=== PATIENT | female | born 1950 | race Caucasian/White ===

== ENCOUNTER 2021-09-04 18:38 | Emergency (ER) | payer MEDICARE, OTHER ==
[~2021-09-04] VITALS: Ht 152.4 cm; Wt 190.0 kg
[~2021-09-04 18:38] MED LIST: FURO80TA87 PO; GABA-534 PO; GLYB2.5T4 PO; HYDR-4353 PO; IBUP-1984 PO; METF500T PO; POTA-207 PO
[2021-09-04 19:04] VITALS: BP 114/59
[2021-09-04 19:36] LABS: BASOPHILS % (AUTO) 0.3 % (0-1); EOSINOPHILS # (AUTO) 0.1 X10'3 (0-0.9); EOSINOPHILS % (AUTO) 2.1 % (0-6); HEMATOCRIT 40.4 % (35.0-45.0); HEMOGLOBIN 13.5 g/dl (12.0-16.0); LYMPHOCYTES # (AUTO) 1.5 X10'3 (1.1-4.8); LYMPHOCYTES % (AUTO) 28.5 % (21-51); MEAN CORPUSCULAR HEMOGLOBIN 26.6 PG (27.0-31.0); MEAN CORPUSCULAR HGB CONC 33.3 g/dL (33.0-36.5); MEAN PLATELET VOLUME 9.3 FL (7.4-10.4); MONOCYTES # (AUTO) 0.3 X10'3 (0-0.9); NEUTROPHILS # (AUTO) 3.4 X10'3 (1.8-7.7); NEUTROPHILS % (AUTO) 63.1 % (42-75); PLATELET COUNT 187 X10'3 (140-440); RED BLOOD COUNT 5.05 X10'6 (4.20-5.60); RED CELL DISTRIBUTION WIDTH 13.1 % (11.5-14.5); WHITE BLOOD COUNT 5.4 X10'3 (4.5-11.0)
[2021-09-04 19:49] LABS: ALANINE AMINOTRANSFERASE 23 U/L (12-78); ALBUMIN 3.1 G/DL (3.4-5.0); ALBUMIN/GLOBULIN RATIO 0.8 (1.1-1.5); ALKALINE PHOSPHATASE 77 IU/L (46-116); ANION GAP 9 (8-16); ASPARTATE AMINO TRANSFERASE 23 U/L (10-37); BILIRUBIN,TOTAL 0.5 MG/DL (0.1-1.0); BLOOD UREA NITROGEN 9 MG/DL (7-18); BUN/CREATININE RATIO 11.3 (6.6-38.0); CALCIUM 8.4 MG/DL (8.5-10.1); CHLORIDE 106 MMOL/L (99-107); GLUCOSE 165 MG/DL (70-104); POTASSIUM 3.8 MMOL/L (3.5-5.1); SODIUM 143 MMOL/L (135-145); TOTAL CARBON DIOXIDE 27.7 MMOL/L (24-32); TOTAL PROTEIN 7.2 G/DL (6.4-8.2); eGFR 70 ML/MIN
== END 2021-09-04 20:32 | disposition home or self-care (01) ==
LOC: ER 18:39
DX: U07.1 COVID-19 (principal)
CPT/HCPCS: 36415; 80053; 85025; 93005; 99284

== ENCOUNTER 2025-04-11 08:20 | Day surgery (SDC) | payer MEDICARE, OTHER ==
--- NOTE | 2025-04-02 10:59 | ELECTROCARDIOGRAPH REPORT ---
[facility] Date[facility] 2025-04-02 Test Time: 10:56:07 Pat Name: SAMMY TREVINO Department: [facility]-PRE-OP Patient ID: [facility]-[id number] Room: Gender: F Sound Tester: LEA : 1950 Requested By: HANK MOTA Order Number: [id number] Reading MD: Dr. POONAM Qiu Measurements Intervals Scalf Rate: 70 P: 48 CO: 173 QRS: 5 QRSD: 94 T: 30 QT: 392 QTc: 423 Interpretive Statements Sinus rhythm Borderline low voltage, extremity leads Electronically Signed On 04-02-2025 17:19:[address] POONAM Qiu Please click the below link to view image of tracing.
[2025-04-02 11:01] LABS: BASOPHILS % (AUTO) 0.6 % (0-1); EOSINOPHILS # (AUTO) 0.2 X10'3 (0-0.9); EOSINOPHILS % (AUTO) 2.9 % (0-6); LYMPHOCYTES # (AUTO) 1.7 X10'3 (1.1-4.8); LYMPHOCYTES % (AUTO) 26.5 % (21-51); MEAN CORPUSCULAR HEMOGLOBIN 27.1 PG (27.0-31.0); MEAN CORPUSCULAR HGB CONC 32.7 g/dL (33.0-36.5); MEAN CORPUSCULAR VOLUME 82.8 FL (78-98); MEAN PLATELET VOLUME 8.1 FL (7.4-10.4); MONOCYTES # (AUTO) 0.4 X10'3 (0-0.9); MONOCYTES % (AUTO) 7.2 % (2-12); NEUTROPHILS # (AUTO) 3.9 X10'3 (1.8-7.7); NEUTROPHILS % (AUTO) 62.8 % (42-75); PRE OP HEMATOCRIT 36.8 % (35.0-45.0); PRE OP PLATELET COUNT 158 X10'3 (140-440); PRE OP WHITE BLOOD COUNT 6.2 10'3 (4.8-10.8); RED BLOOD COUNT 4.45 X10'6 (4.20-5.60); RED CELL DISTRIBUTION WIDTH 16.4 % (11.5-14.5)
[2025-04-02 11:15] LABS: PRE OP INR 1.1 INR; PRE OP PROTIME 10.9 SECONDS (9.0-12.0)
[2025-04-02 11:23] LABS: ALBUMIN 3.8 G/DL (3.4-5.0); ALBUMIN/GLOBULIN RATIO 1.2 (1.1-1.5); ALKALINE PHOSPHATASE 76 IU/L (46-116); BLOOD UREA NITROGEN 9 MG/DL (7-18); BUN/CREATININE RATIO 14.1 (10.0-20.0); CALCIUM 9.5 MG/DL (8.5-10.1); CHLORIDE 109 MMOL/L (99-107); CREATININE 0.64 MG/DL (0.40-0.90); PRE OP ALT 20 U/L (30-65); PRE OP ANION GAP 6 (8-16); PRE OP AST 17 U/L (10-37); PRE OP BILIRUB, TOTAL 0.8 MG/DL (0.0-1.0); PRE OP GLUCOSE 128 MG/DL (70-104); PRE OP SODIUM 144 MMOL/L (135-145); TOTAL CARBON DIOXIDE 29.1 MMOL/L (24-32); eGFR 90 ML/MIN
[2025-04-11] VITALS (8 sets, daily range): BP systolic 95–119; BP diastolic 41–63; PULSE 71–82; RESP 12–16; TEMP 97.5; O2SAT 93–100
[~2025-04-11] VITALS: Ht 152.4 cm; Wt 80.0 kg
[~2025-04-11 08:20] MED LIST changes: +ASCO-10 PO; +BUPIVAcaine 0.25% w/Epi /PF 30ml vial ONE; +BUPIVAcaine 2.5mg/ml inj 50ml vial (contains preservative) ONE; +CALC500T63 PO; +CHOL10006 PO; +FURO40TA4 PO; -FURO80TA87 PO; -GABA-534 PO; +GABA400C PO; +GLUC-193 PO; -GLYB2.5T4 PO; -HYDR-4353 PO; -IBUP-1984 PO; +LIDOcaine 1% 30ml preserv. free vial ONE; +LOVA20TA2 PO; +LYSI500T40 PO; +MULT-1085 PO; +THIA100C PO
[2025-04-11] MEDS: ceFAZolin 2gm/dext,iso 50mL 50 ML IV ONE (09:44)
[2025-04-11] MEDS: ringers solution, lacted 1,000 ML IV SCH (09:45)
[2025-04-11] MEDS: famotidine 20mg tablet PO ONE (09:45)
[2025-04-11] MEDS ORDERED: fentaNYL/PF 50MCG/1 ML 2ML syringe ONE (11:14)
[2025-04-11] MEDS ORDERED: midazolam 1 mg/ML 2ml injection ONE (11:14)
[2025-04-11] MEDS ORDERED: sevoflurane 250ml liquid IH ONE (11:32)
[2025-04-11] MEDS: BUPIVAcaine/PF 2.5 mg/ml (0.25%) 30ml vial IJ ONE (11:45)
[2025-04-11] MEDS ORDERED: ondansetron/PF 4mg/2ml inj IV PRN (11:55)
[2025-04-11] MEDS ORDERED: ringers solution, lacted 1,000 ML IV SCH (11:55)
[2025-04-11] MEDS ORDERED: morphine 4 MG/ML inj SYRINge IV PRN (11:55)
[2025-04-11] MEDS ORDERED: HYDROmorphone/PF 0.2 MG/ML SYRINGE IV PRN ×2 (11:55)
[2025-04-11] MEDS ORDERED: acetaminophen 1,000mg/100ml IV 100 ML IV PRN (11:55)
[2025-04-11] MEDS ORDERED: hydrALAZINE 20mg/ml inj. IV PRN (11:55)
[2025-04-11] MEDS ORDERED: morphine 2 MG/ML inj. syringe IV PRN (11:55)
[2025-04-11] MEDS ORDERED: meperidine/PF 25mg/ml syringe IV PRN (11:55)
[2025-04-11] MEDS ORDERED: acetaminophen 1,000mg/100ml IV 100 ML IV ONE (12:37)
[2025-04-11] MEDS ORDERED: propofol inj 20 ML IV ONE (12:37)
[2025-04-11] MEDS ORDERED: ondansetron/PF 4mg/2ml inj ONE (12:38)
[2025-04-11] MEDS ORDERED: dexamethasone sod phosphate 4mg/ml inj. ONE (12:38)
--- NOTE | 2025-04-11 12:54 | OPERATIVE REPORT ---
Operative Report Providers to ~ Date of Procedure: Apr 11, 2025 Pre-Operative Diagnosis: Breast cancer, left lower outer quadrant Post-Operative Diagnosis SAME as PRE-Op Procedure Performed Tracking marker localization segmental mastectomy Lymphatic mapping Deep axillary biopsy for recovery of sentinel node Intercostal block at each of four levels for postoperative pain control Surgeon: Hank Levy MD Switchboard Installer None Anesthesiologist: Albert Nagy Type of Anesthesia: General Findings: Tracking marker identified 5 mm from anterior margin, which was closest One sentinel lymph node identified peak count 4322 Complications None Prosthetics\Implants used: None Estimated Blood Loss: Less than 50 cc Specimen Removed: Left lower outer quadrant specimen Line [place] lymph node 1. Description of Procedure: The patient is identified in the supine position with her left arm extended. She was prepped and draped in the usual sterile fashion. Prior to surgery the patient underwent a tracking marker placement at my office localizing the tumor inferiorly on the left. Preoperative antibiotics have been administered within 1 hour prior to surgery. SCDs have been apparently. The patient has had a technetium 99 injection in [facility]. A curvilinear incision was made over the audible tracking marker signal. Flaps were raised towards and away from the nipple. The underlying breast tissue was excised in a segmental fashion. The specimen is oriented and sent for pathologic study in formalin. The wound was thoroughly irrigated. Hemostasis was obtained. The incision was closed with interrupted 3-0 Vicryl pop-off sutures for the deep layers and a running 3-0 Stratafix suture for skin Attention was then turned to the left axilla. A hot spot was localized at the base of the axillary hairline. Lymphatic mapping was carried out with the Hologic gamma probe. A small incision was made over the hot spot and dissection was carried out through the clavipectoral fascia into the deep axillary space. The incision is developed as lymphatic mapping was carried out with the Hologic gamma probe. One sentinel lymph node was identified and this was excised with the LigaSure. Further lymphatic mapping demonstrates no additional hot or palpable nodes. The wound was thoroughly irrigated. Hemostasis was obtained. An intercostal block was performed at each of four levels for postoperative pain control with a mixture of Marcaine and lidocaine. Further local was infused within the flaps. The incision was closed with interrupted 3-0 Vicryl pop-off sutures for the deep layers and a running 3-0 Stratafix suture for skin. Incision was dressed with Dermabond and Steri-Strips. The patient was taken to the PAR in stable condition. Estimated blood loss less than 50 cc. Final sponge and needle count was correct x2 HAKN LEVY MD Apr 11, 2025 12:54
== END 2025-04-11 14:09 | disposition home or self-care (01) ==
LOC: OR 08:20
PROVIDERS: ATTEND Surgery
DX: C50.512 Malignant neoplasm of lower-outer quadrant of left female breast (principal); M19.90 Unspecified osteoarthritis, unspecified site; G47.30 Sleep apnea, unspecified; E11.9 Type 2 diabetes mellitus without complications; Z90.710 Acquired absence of both cervix and uterus; Z98.890 Other specified postprocedural states; Z79.01 Long term (current) use of anticoagulants; Z79.899 Other long term (current) drug therapy; Z98.51 Tubal ligation status
CPT/HCPCS: 19301; 36415; 38525; 38792; 80053; 82948; 85025; 85610; 85730; 88307; 88341; 88342; 93005; A4215; A4618; A6402; A7000; J0131; J0690; J1100; J2003; J2250; J2405; J2704; J3010; J3490; J7030; J7120; Z7506; Z7508; Z7512; Z7610; A6449; J0665